=== PATIENT | male | born 1960 | race African-American/Black ===

== ENCOUNTER 2018-12-16 20:01 | Emergency (ER) | payer OTHER ==
[~2018-12-16] VITALS: Ht 180.3 cm; Wt 120.2 kg
[2018-12-16 20:29] VITALS: BP_SYST 129
--- NOTE | 2018-12-16 20:29 | NUR ---
Patient to ER bed 5 for evaluation. Side rails up. Report given to JEFF Murray.
--- NOTE | 2018-12-16 20:50 | NUR ---
ER at bedside examining patient.
[2018-12-16] MEDS ORDERED: KETOROLAC TROMETHAMINE 60 MG/2 ML VIAL IM ONE (21:00)
--- NOTE | 2018-12-16 21:00 | NUR ---
PATIENT ARRIVED FROM HOME ALERT AND ORIENT, ABLE TO VERBALIZE HIS NEEDS. COMPLAINTS OF LOWER BACK PAIN RADIATING TO THE LEFT LEG 9/10 PAIN. DENIES ANY CARDIAC ISSUES, N/V, CHILLS, FEVER, OR SOB. PATIENT IS AMBULATORY WITH A CANE.
[2018-12-16] MEDS ORDERED: KETAMINE 30 MG/3 ML SYRINGE IVP ONE (21:15)
[2018-12-16 22:45] VITALS: BP_SYST 132
--- NOTE | 2018-12-16 22:45 | NUR ---
Patient given written and verbal discharge instructions and verbalizes understanding. ER MD discussed with patient the results and treatment provided. Patient in stable condition. ID arm band removed. IV catheter removed intact and dressing applied, no active bleeding. Rx of tramadol 50mg given. Patient educated on pain management and to follow up with PMD. Pain Scale 0/10. Opportunity for questions provided and answered. Medication side effect fact sheet provided.
== END 2018-12-16 22:45 | disposition home or self-care (01) ==
LOC: SED 20:01
DX: M54.5 Low back pain (principal); Z88.5 Allergy status to narcotic agent; Z88.6 Allergy status to analgesic agent; Z91.018 Allergy to other foods
CPT/HCPCS: 96372; 96374; 99283; J1885